=== PATIENT | female | born 1995 | race American Indian/Alaskan Native ===

== ENCOUNTER 2018-12-10 23:52 | Emergency (ER) | payer BC ==
[2018-12-11 00:03] VITALS: BP 112/63
[2018-12-11] MEDS ORDERED: ULTRAM PO ONE (00:16)
--- NOTE | 2018-12-11 01:12 | Emergency Department Report ---
ED Lower Extremity HPI - General Chief Complaint: Extremity Injury, Lower Stated Complaint: LT FOOT INJURY Time Seen by Provider: 12/11/18 00:13 Source: patient Mode of arrival: Ambulatory Limitations: No Limitations - History of Present Illness Initial Comments: Patient is a 22-year-old -[place] female who states she slipped at work and strained her left foot now and 5 cm left foot pain medial under great toe pad denies history of seamoid injury patient states pain is 5/10 exacerbated by weight bearing relieved by off loading pt states partial weight bearing only pt denies numbness and tingling no deformity , states swelling and pain. Complaint: foot injury Onset/Timin -: hour(s) Injury: Foot: Left (instep pain ) Type of Injury: hyperextension Place: work Severity: moderate Severity scale (0 -10): 5 Improves With: rest Worsens With: weight bearing Context: other (slipped denies fall no trauma ) Associated Symptoms: swelling, tingling - Related Data Home Medications Medication Instructions Recorded Confirmed Last Taken Ibuprofen [Motrin] 400 mg PO PRN PRN 12/31/14 12/31/14 12/30/14 22:00 Previous Rx's Medication Instructions Recorded Last Taken Type Cyclobenzaprine [Flexeril] 10 mg PO TID PRN #30 tablet 09/30/16 Unknown Rx Ibuprofen [Motrin] 800 mg PO Q8HR PRN #30 tablet 09/30/16 Unknown Rx Cyclobenzaprine [Flexeril] 10 mg PO BID PRN #20 tablet 12/11/18 Unknown Rx Naproxen [Naprosyn] 500 mg PO BID PRN #30 tablet 12/11/18 Unknown Rx Allergies Allergy/AdvReac Type Severity Reaction Status Date / Time No Known Allergies Allergy Verified 11/03/14 18:35 ED Review of Systems ROS: Stated complaint: LT FOOT INJURY Other details as noted in HPI Constitutional: denies: chills, fever Eyes: denies: eye pain, eye discharge, vision change ENT: denies: ear pain, throat pain Respiratory: denies: cough, shortness of breath, wheezing Cardiovascular: denies: chest pain, palpitations Endocrine: no symptoms reported Gastrointestinal: denies: abdominal pain, nausea, diarrhea Genitourinary: denies: urgency, dysuria, discharge Musculoskeletal: other (left foot pain ) Skin: denies: rash, lesions Neurological: denies: headache, weakness, paresthesias Psychiatric: denies: anxiety, depression Hematological/Lymphatic: denies: easy bleeding, easy bruising ED Past Medical Hx - Past Medical History Previous Medical History?: No Hx Sickle Cell Disease: No Hx Asthma: No - Surgical History Past Surgical History?: Yes - Social History Smoking Status: Never Smoker Substance Use Type: Alcohol - Medications Home Medications: Home Medications Medication Instructions Recorded Confirmed Last Taken Type Ibuprofen [Motrin] 400 mg PO PRN PRN 12/31/14 12/31/14 12/30/14 22:00 History Cyclobenzaprine [Flexeril] 10 mg PO TID PRN #30 tablet 09/30/16 Unknown Rx Ibuprofen [Motrin] 800 mg PO Q8HR PRN #30 tablet 09/30/16 Unknown Rx Cyclobenzaprine [Flexeril] 10 mg PO BID PRN #20 tablet 12/11/18 Unknown Rx Naproxen [Naprosyn] 500 mg PO BID PRN #30 tablet 12/11/18 Unknown Rx ED Physical Exam - General Limitations: No Limitations General appearance: alert, in no apparent distress - Head Head exam: Present: atraumatic, normocephalic - Eye Eye exam: Present: normal appearance - ENT ENT exam: Present: mucous membranes moist - Neck Neck exam: Present: normal inspection - Respiratory Respiratory exam: Present: normal lung sounds bilaterally. Absent: respiratory distress, wheezes, stridor, chest wall tenderness - Cardiovascular Cardiovascular Exam: Present: regular rate, normal rhythm, normal heart sounds. Absent: systolic murmur, diastolic murmur, rubs, gallop - GI/Abdominal GI/Abdominal exam: Present: soft, normal bowel sounds. Absent: tenderness, bruit, hernia - Rectal Rectal exam: Present: deferred - Extremities Exam Extremities exam: Present: normal inspection, full ROM, tenderness (left instep ), normal capillary refill. Absent: pedal edema, joint swelling, calf tenderness - Back Exam Back exam: Present: normal inspection, full ROM. Absent: tenderness, CVA tenderness (R), CVA tenderness (L), muscle spasm, paraspinal tenderness, vertebral tenderness, rash noted - Neurological Exam Neurological exam: Present: alert, oriented X3, CN II-XII intact, abnormal gait. Absent: motor sensory deficit, reflexes normal - Expanded Neurological Exam Expanded Patient oriented to: Present: person, place, time Speech: Present: fluid speech Motor strength exam: RUE: 5, LUE: 5, RLE: 5, LLE: 5 DTR: ankle (R): 2+, ankle (L): 2+ Best Eye Response (Evangelist): (4) open spontaneously Best Motor Response (Evangelist): (6) obeys commands Best Verbal Response ([place]): (5) oriented [place] Total: 15 - Psychiatric Psychiatric exam: Present: normal affect, normal mood - Skin Skin exam: Present: warm, dry, intact, normal color. Absent: rash ED Course Vital Signs 12/10/18 23:57 Temperature 97.9 F Pulse Rate 67 Respiratory 18 Rate Blood Pressure 122/63 O2 Sat by Pulse 98 Oximetry ED Lower Extremity MDM - Radiology Data Radiology results: report reviewed, image reviewed Findings [facility] [address] [place] [address] XRay Report Signed Patient: EL ABAD MR#: [id number] : 07/09/1965 Acct:[id number] Age/Sex: 53 / M ADM Date: 12/10/18 Loc: ED Attending Dr: Ordering Physician: WONG COBOS NP Date of Service: 12/11/18 Procedure(s): XR chest routine 2V Accession Number(s): [id number] cc: WONG COBOS NP Fluoro Time In Minutes: FINAL REPORT EXAM: XR CHEST ROUTINE 2V HISTORY: cough fever TECHNIQUE: PA and lateral views of the chest were obtained and compared to the study of 03/11/2018. FINDINGS: The heart size and mediastinum appear normal. The lungs are clear. Pleural fluid is not seen. The skeletal structures appear well maintained. IMPRESSION: No acute process in the chest. Transcribed By: RB Dictated By: KARLOS FREDERICK MD Electronically Authenticated By: KARLOS FREDERICK MD Signed Date/Time: 12/11/1841 - Medical Decision Making Foot xray is normal no fracture no soft tissue abnormality plan: nsiads, muscle relaxants, elvia wrap, crutches , RICE thereapy follow up with pcp in 2-3 days , return to ed if symptoms worsen or not improving . Critical care attestation.: If time is entered above; I have spent that time in minutes in the direct care of this critically ill patient, excluding procedure time. ED Disposition Clinical Impression: Sprain of foot, left Qualifiers: Encounter type: initial encounter Qualified Code(s): S93.602A - Unspecified sprain of left foot, initial encounter Disposition: TO HOME OR SELFCARE Is pt being admited?: No Does the pt Need Aspirin: No Condition: Stable Instructions: Crutch Instructions (ED), Foot Sprain (ED) Prescriptions: Cyclobenzaprine [Flexeril] 10 mg PO BID PRN #20 tablet PRN Reason: Muscle Spasm Naproxen [Naprosyn] 500 mg PO BID PRN #30 tablet PRN Reason: pain Referrals: [facility] [Outside] - 3-5 Days Forms: Work/School Release Form(ED) Time of Disposition: 01:49
--- NOTE | 2018-12-11 01:35 | XRay Report ---
FINAL REPORT PROCEDURE: XR FOOT 3+V LT TECHNIQUE: Computerized axial tomography of the LEFT foot was performed without contrast. HISTORY: foot pain s/p fall COMPARISON: No prior studies are available for comparison. FINDINGS: Bony structures including marrow spaces: Normal. Neurovascular structures: Normal. Soft tissues: Normal. Joint space: Normal. IMPRESSION: Normal Examination.
== END 2018-12-11 02:20 | disposition home or self-care (01) ==
LOC: ED 23:52
DX: S93.602A Unspecified sprain of left foot, initial encounter (principal); W01.198A Fall on same level from slipping, tripping and stumbling with subsequent striking against other object, initial encounter; Y93.89 Activity, other specified; Y92.69 Other specified industrial and construction area as the place of occurrence of the external cause; Y99.8 Other external cause status
CPT/HCPCS: 99284